=== PATIENT | male | born 1960 | race Caucasian/White ===

== ENCOUNTER 2018-11-07 06:24 | Emergency (ER) | payer OTHER, MEDICARE ==
[2018-11-07 07:37] LABS: ABSOLUTE EOSINOPHILS # (AUTO) 0.1 10^3/uL (0.0-0.6); ABSOLUTE LYMPHOCYTES (AUTO) 1.4 10^3/uL (0.5-4.7); ABSOLUTE MONOCYTES (AUTO) 0.8 10^3/uL (0.1-1.4); ABSOLUTE NEUT (AUTO) 5.1 10^3/uL (1.7-8.2); BASOPHILS % (AUTO) 0.6 % (0-2); EOSINOPHILS % (AUTO) 1.9 % (0-6); HEMATOCRIT 46.6 % (37.9-51.0); HEMOGLOBIN 15.6 g/dL (13.5-17.0); LYMPHOCYTES % (AUTO) 18.4 % (13-45); MEAN CORPUSCULAR HGB CONC 33.4 g/dL (32.0-36.0); MEAN CORPUSCULAR VOLUME 90 fl (80-97); MONOCYTES % (AUTO) 10.8 % (3-13); PLATELET COUNT 177 10^3/uL (150-450); RED BLOOD COUNT 5.18 10^6/uL (4.35-5.55); RED CELL DISTRIBUTION WIDTH 14.3 % (11.5-14.0); SEGMENTED NEUTROPHILS % (AUTO) 68.3 % (42-78); TOTAL CELLS COUNTED % (AUTO) 100 %; WHITE BLOOD COUNT 7.5 10^3/uL (4.0-10.5)
--- NOTE | 2018-11-07 07:37 | ER Document Report ---
ED General - General Chief Complaint: Breathing Difficulty Stated Complaint: CHEST PRESSURE Time Seen by Provider: 11/07/18 06:56 TRAVEL OUTSIDE OF THE [place] IN LAST 30 DAYS: No - HPI Notes: Patient is a 57-year-old gentleman who presents to the emergency department for evaluation of difficulty breathing. He states is been going on for the last 3 days. He states he has been working out at the gym, on the elliptical, for several weeks. He states over the last week his difficulty breathing with exert ion has worsened, to the point where he cannot catch his breath. He states he lays down at night and feels as if he is "being smothered" or "choked." He denies any chest pain at this time. He states he does get occasional chest tightness, this is been ongoing for the last 6 months. Is not really related to exertion. He admits it seems to be related to his mood. He states he has been under a significant amount of stress as of late. He does have a history of TBI and PTSD. He states the [facility] has been encouraging him to take medications, but he does not want to, states that he is concerned about side effects. He admits that he smoked medical marijuana and prior states where it was legal. He states that he had significant relief from his chest pain with this medication. - Related Data Allergies/Adverse Reactions: No Known Allergies Allergy (Unverified 11/07/18 07:08) Past Medical History - General Information source: Patient - Social History Smoking Status: Never Smoker Frequency of alcohol use: None Drug Abuse: Marijuana Family History: Reviewed & Not Pertinent Patient has suicidal ideation: No Patient has homicidal ideation: No - Past Medical History Cardiac Medical History: Reports: Hx Hypercholesterolemia, Hx Hypertension Endocrine Medical History: Reports: Hx Hypothyroidism Renal/ Medical History: Denies: Hx Peritoneal Dialysis GI Medical History: Reports: Hx Gastroesophageal Reflux Disease Musculoskeletal Medical History: Reports Hx Arthritis Past Surgical History: Reports: Hx Orthopedic Surgery - right shoulder; back; ne ck; left elbow; left leg; bilat hands Review of Systems - Review of Systems Constitutional: No symptoms reported EENT: No symptoms reported Cardiovascular: See HPI Respiratory: See HPI Gastrointestinal: No symptoms reported Genitourinary: No symptoms reported Musculoskeletal: No symptoms reported Skin: No symptoms reported Neurological/Psychological: No symptoms reported Physical Exam - Vital signs Vitals: Temp Pulse Resp BP Pulse Ox 97.8 F 70 28 H 144/91 H 97 11/07/18 06:31 11/07/18 06:31 11/07/18 06:31 11/07/18 06:31 11/07/18 06:31 - Notes Notes: Obese 57-year-old male, appears his stated age in no acute distress. Vital signs reviewed, please refer to chart. Head is normocephalic, atraumatic. Pupils equal round, reactive to light. Neck is supple without meningismus. Heart is regular rate and rhythm. Lungs are clear to auscultation bilaterally. Abdomen is soft, nontender, normoactive bowel sounds throughout. Extremities without cyanosis, clubbing. 1+ pitting edema at the ankles. Posterior calves are nontender. Peripheral pulses are equal. Skin is warm and dry. Patient is awake, alert, neurological exam is nonfocal. Course - Re-evaluation Re-evalutation: 11/07/18 09:45 Patient presents emergency department for evaluation. On arrival he is mildly tachypneic, mildly hypertensive, but the remainder his vital signs are within normal limits. He had laboratory investigations, EKG obtained, chest x-ray and monitoring performed. Patient remained stable throughout the course of his stay. Laboratory investigations were entirely unremarkable. At this point my suspicion is that this patient's symptoms are secondary to anxiety. He is already being followed at the [facility], is awaiting another stress test. He has had a 1 of those in the past. At this time he has no signs of heart failure. He has no risk factors for PE. My strong suspicion is this is secondary to anxiety, and the patient was notified of this. He is told to follow-up with the [facility], return to the ED with worsening or new concerning symptoms. He voiced understanding and was discharged. - Vital Signs Vital signs: Temp Pulse Resp BP Pulse Ox 97.8 F 70 14 153/93 H 96 11/07/18 06:31 11/07/18 06:31 11/07/18 07:01 11/07/18 07:01 11/07/18 07:01 - Laboratory Result Diagrams: 11/07/18 06:56 11/07/18 06:56 Laboratory results interpreted by me: 11/07/18 11/07/18 06:56 06:56 RDW 14.3 H Sodium 136.4 L AST 60 H - EKG Interpretation by Me Additional EKG results interpreted by me: 11/07/18 09:46 Sinus mechanism with a rate of 68 bpm. Normal axis and intervals, no acute ST changes concerning for ischemia or infarction. Discharge - Discharge Clinical Impression: Anxiety Dyspnea Qualifiers: Dyspnea type: unspecified Qualified Code(s): R06.00 - Dyspnea, unspecified Chest pain Qualifiers: Chest pain type: unspecified Qualified Code(s): R07.9 - Chest pain, unspecified Condition: Stable Disposition: HOME, SELF-CARE Instructions: Dyspnea, Nonspecific ([facility]), Chest Pain of Unclear Cause ([facility]), Anxiety ([facility]) Additional Instructions: Continue your work-up as an outpatient of your chest pain, including possible st ress test. Follow-up with primary care provider in 1 to 2 weeks. Return to the emergency department with worsening or new concerning symptoms.
[2018-11-07 07:41] LABS: ALANINE AMINOTRANSFERASE 66 U/L (21-72); ALBUMIN 4.4 g/dL (3.5-5.0); ALKALINE PHOSPHATASE 61 U/L (38-126); ANION GAP 9 (5-19); ASPARTATE AMINO TRANSFERASE 60 U/L (17-59); BILIRUBIN,DIRECT 0.2 mg/dL (0.0-0.4); BILIRUBIN,TOTAL 0.4 mg/dL (0.2-1.3); BLOOD UREA NITROGEN 16 mg/dL (7-20); CALCIUM 9.7 mg/dL (8.4-10.2); CARBON DIOXIDE 25 mmol/L (22-30); CHLORIDE 102 mmol/L (98-107); GLUCOSE 98 mg/dL (75-110); POTASSIUM 4.7 mmol/L (3.6-5.0); SODIUM 136.4 mmol/L (137-145)
--- NOTE | 2018-11-07 07:52 | RADIOLOGY REPORT (SQ) ---
Chest single view on 11/07/2018 at 7:38 AM CLINICAL INDICATION: Shortness of breath COMPARISON: None FINDINGS: The lungs are clear. Cardiac, hilar and mediastinal contours are within normal limits. Pulmonary vascularity is within normal limits. Fusion hardware is partially imaged in the lower cervical spine. No acute bony abnormality is noted. IMPRESSION: No active disease.
[2018-11-07 07:53] LABS: NT PRO BNP 20 pg/mL (5-900)
[2018-11-07 07:54] LABS: TROPONIN I < 0.012 ng/mL
[2018-11-07 09:00] LABS: APPEARANCE,URINE CLEAR; BILIRUBIN,URINE NEGATIVE (NEGATIVE); COLOR,URINE STRAW; GLUCOSE, URINE NEGATIVE (NEGATIVE); KETONES,URINE NEGATIVE (NEGATIVE); LEUKOCYTE ESTERASE,URINE NEGATIVE (NEGATIVE); NITRITE,URINE NEGATIVE (NEGATIVE); PROTEIN,URINE NEGATIVE (NEGATIVE); URINE SPECIFIC GRAVITY 1.009; UROBILINOGEN,URINE NEGATIVE mg/dL (<2.0)
[2018-11-07 10:04] VITALS: BP 146/98
--- NOTE | 2018-11-08 00:13 | EKG REPORT ---
SEVERITY:- NORMAL ECG - SINUS RHYTHM : Confirmed by: Evi Aguilar 08-Nov-2018 00:12:46
== END 2018-11-07 10:04 | disposition home or self-care (01) ==
LOC: ER 06:24
DX: R07.9 Chest pain, unspecified (principal); F41.9 Anxiety disorder, unspecified; R06.82 Tachypnea, not elsewhere classified; Z87.820 Personal history of traumatic brain injury; I10 Essential (primary) hypertension
CPT/HCPCS: 36415; 71045; 80053; 81001; 83880; 84484; 85025; 93005; 93010; 99285